=== PATIENT | male | born 1985 | race Caucasian/White ===

== ENCOUNTER 2017-10-25 16:44 | Observation (INO) ==
--- NOTE | 2017-10-25 17:01 | Emergency Department Note ---
Disposition Clinical Impression: Positive QuantiFERON-TB Gold test Disposition: Admitted As Inpatient Condition: Undetermined Forms: ED Satisfaction Letter Time of Disposition: 17:16 General Adult HPI - General Chief complaint: ED Recheck/Abnormal Lab/Rx Stated complaint: + TB Test Time Seen by Provider: 10/25/17 16:48 Source: patient Mode of arrival: ambulatory Limitations: no limitations Nursing Notes Reviewed: Yes Vital Signs Reviewed: Yes - History of Present Illness HPI Narrative: 32-year-old male with exposure to tuberculosis, arrives to the emergency department after having a negative PPD, and negative chest x-ray with a positive Quante [place] test. The patient was sent from [place] emergency department to [facility] ED for admission and testing. I spoke to Dr. Amin in infectious disease. He requested 3 acid-fast bacillus smear 3 for the sputum. They need to be 8 at least 8 hours apart with the first in the morning. The patient also had a repeat Quante [place]. The patient is under airborne precautions at this time. He remains asymptomatic. The patient will be admitted to the hospitalist at this time. - Related Data Home Medications Medication Instructions Recorded Confirmed Naltrexone HCl 50 mg DAILY 10/25/17 10/25/17 Allergies Allergy/AdvReac Type Severity Reaction Status Date / Time Sulfa (Sulfonamide AdvReac Rash Verified 10/25/17 10:26 Antibiotics) All systems ED: reviewed and negative except as stated. Constitutional: Denies: fever, chills, weakness ENT ED: Denies: dysphagia Cardiovascular: Denies: chest pain Respiratory: Denies: dyspnea Gastrointestinal: Denies: abdominal pain Genitourinary: Denies: urgency, dysuria Musculoskeletal: Denies: back pain Integumentary: Denies: rash Past Medical History - Past Medical History Attestation: Yes The following information was validated with the patient. Source: patient, old records reviewed Medical history: Reports: no medical history, other Surgical history: Reports: non-contributory Psychiatric history: Reports: no psych history - Social History Smoking Status: Current every day smoker Smokeless Tobacco Status: No Alcohol use: Reports: none Drug use: Reports: IV Drug Use Physical Exam - General Limitations: no limitations General appearance: alert, in no apparent distress - Head Head exam: atraumatic, normocephalic, normal inspection - Eye Eye exam: Present: normal appearance, PERRL, EOMI - ENT ENT exam: normal exam, normal oropharynx, mucous membranes moist - Neck Neck exam: Present: normal inspection, full ROM, trachea midline - Chest Chest inspection: Present: normal inspection, symmetric chest wall rise - Respiratory Respiratory exam: Present: normal lung sounds bilaterally - Cardiovascular Cardiovascular exam: Present: regular rate, normal rhythm, normal heart sounds - Extremities Exam Extremities exam: Present: normal inspection, full ROM. Absent: tenderness, pedal edema - Neurological Exam Neurological exam: Present: alert, oriented X3 - Skin Skin exam: Present: warm, dry, intact, normal color Course Vital Signs Temperature 98.0 F 10/25/17 16:54 Pulse Rate 87 10/25/17 16:54 Respiratory Rate 15 10/25/17 16:54 Blood Pressure 144/79 10/25/17 16:54 O2 Sat by Pulse Oximetry 98 10/25/17 16:54 Temperature 98.0 F 10/25/17 16:54 Pulse Rate 83 10/25/17 16:59 Respiratory Rate 15 10/25/17 16:54 Blood Pressure 124/79 10/25/17 16:59 O2 Sat by Pulse Oximetry 97 10/25/17 16:59 Oxygen Delivery Oxygen Delivery Room Air Medical Decision Making - MDM Narrative Medical decision making narrative: Accepted by Dr. Rodriguez. - Medical Records Medical records reviewed: Yes I reviewed the patient's medical records.
--- NOTE | 2017-10-25 17:24 | Emergency Department Note ---
Disposition Clinical Impression: Positive QuantiFERON-TB Gold test Disposition: Admitted As Inpatient Condition: Undetermined Referrals: Sujata Han, HIGH HEEL BUILDER [Primary Care Provider] - Forms: ED Satisfaction Letter General Adult HPI - General Chief complaint: ED Recheck/Abnormal Lab/Rx Stated complaint: + TB Test Time Seen by Provider: 10/25/17 16:48 Source: patient Mode of arrival: ambulatory Limitations: no limitations - History of Present Illness Pain Scale: 0 - Related Data Home Medications Medication Instructions Recorded Confirmed Naltrexone HCl 50 mg PO DAILY 10/25/17 10/25/17 Naltrexone Microspheres [Vivitrol] 380 mg IJ QMONTH 10/25/17 10/25/17 Omeprazole [PriLOSEC] 20 mg PO DAILY 10/25/17 10/25/17 Allergies Allergy/AdvReac Type Severity Reaction Status Date / Time Sulfa (Sulfonamide AdvReac Rash Verified 10/25/17 10:26 Antibiotics) Constitutional: Denies: fever, chills, weakness ENT ED: Denies: dysphagia Cardiovascular: Denies: chest pain Respiratory: Denies: dyspnea Gastrointestinal: Denies: abdominal pain Genitourinary: Denies: urgency, dysuria Musculoskeletal: Denies: back pain Integumentary: Denies: rash Past Medical History - Past Medical History Medical history: Reports: no medical history, other Surgical history: Reports: non-contributory Psychiatric history: Reports: no psych history - Social History Smoking Status: Current every day smoker Smokeless Tobacco Status: No Alcohol use: Reports: none Drug use: Reports: IV Drug Use Physical Exam - General Limitations: no limitations General appearance: alert, in no apparent distress Course Vital Signs Temperature 98.0 F 10/25/17 16:54 Pulse Rate 87 10/25/17 16:54 Respiratory Rate 15 10/25/17 16:54 Blood Pressure 144/79 10/25/17 16:54 O2 Sat by Pulse Oximetry 98 10/25/17 16:54 Temperature 98.0 F 10/25/17 16:54 Pulse Rate 83 10/25/17 16:59 Respiratory Rate 15 10/25/17 16:54 Blood Pressure 124/79 10/25/17 16:59 O2 Sat by Pulse Oximetry 97 10/25/17 16:59 Oxygen Delivery Oxygen Delivery Room Air Attestation Statement - Attestation Attestation: I examined this patient and my medical decision-making was reviewed with the Resident Physician. I agree with the documented findings, disposition and treatment plan as described except to the extent set forth below. Has a chronic cough, coughing more than usual but no hemoptysis. No weight loss. Has had some night time sweating. Has felt like he may have been febrile but has not checked his temperature. Patient is in a negative pressure room be admitted for further testing.
[2017-10-25] MEDS ORDERED: Naloxone 0.4 MG/ML INJ IVP PRN (20:12)
--- NOTE | 2017-10-25 23:44 | Internal Med History&Physical ---
Date of Encounter: 10/25/17 Time of Encounter: 19:00 Internal Medicine - H&P: HPI Chief complaint: Positive QuantiFERON-TB Gold. History of present illness: Mr. Castellon is a 32 year old male. HPI: Patient is sent to our emergency room from his drug rehab program, after he was tested positive for QuantiFERON TB Gold. The test was done about a week ago in preparation for treatment with Vivitrol. He started this opiate antagonist yesterday. The patient started to his drug rehab about 3 months ago; has 1 month left. It was about 6 weeks ago, when he started contacts with one of his inmates, who was later tested positive for tuberculosis. Those contacts lasted for about 12 weeks. The whole group was subjected to Lydia test recently. It was negative for for this patient. The patient has had coughing but not wheezing for about a few weeks. He denies fever and chills. He denies sweating. He does have some thick mucus; cannot bring it up. This patient started IV heroine injections some time last year. He was released from the assisted on July 30, 2016was incarcerated for about 4 years. He was tested hepatitis C positive, when in assisted. He does have the tatoos, originating a few years ago. He smokes cigarettes. He denies alcohol use. REVIEW OF SYSTEMS: All 14 organ systems were reviewed by me with the patient. Positive and pertinent negative findings are listed above. The rest of organ systems is negative. PHYSICAL EXAM: Skin: Free of rash and discoloration. Eyes: Sclera is white. There is no discharge from eyes. ENMT: Oral/pharyngeal mucosa is normal in appearance. There is no discharge from nose or ears. Respiratory: Normal breath sounds with no crackles and wheezes bilaterally. CV: Heart is regular with no gallop or murmur. GI: Abdomen is flat and soft with no palpable mass or visceromegaly. : There is no tenderness in patient's flanks bilaterally. Neuro exam: He has good strength in upper and lower extremities. He has normal eye movements. Psychiatric: He has normal affect. His thought process is appropriate to the situation. A/P: Exposure to person with active tuberculosis; the patient is negative in Lydia test and the positive in TB Gold QuantiFERON. The patient is presented to infectious diseases. They recommend the TB isolation. He will have for 3 AFB cultures from his sputum. TB Gold QuantiFERON will be repeated. IV heroine user. I will discuss with the pharmacy treatment with Vivitrol. To be restarted tomorrow. Past Med Surg Social Fam HX - Past Medical History Medical history: no medical history, other Additional medical history: RECOVERING FROM HEROIN USE Psychiatric history: no psych history - Past Surgical History Surgical History: non-contributory - Social History Smoking Status: Current every day smoker Smokeless Tobacco Status: No Alcohol use: none Drug use: IV Drug Use - Family History Mother History Unknown: Yes Internal Medicine - H&P: Meds Naltrexone HCl 50 mg PO DAILY 10/25/17 [History] Naltrexone Microspheres [Vivitrol] 380 mg IJ QMONTH 10/25/17 [History] Omeprazole [PriLOSEC] 20 mg PO DAILY 10/25/17 [History] 3 Allergy/AdvReac Type Severity Reaction Status Date / Time Sulfa (Sulfonamide AdvReac Rash Verified 10/25/17 10:26 Antibiotics) - Constitutional Vitals: Temp Pulse Resp BP Pulse Ox 98.3 F 63 14 119/78 97 10/25/17 21:18 10/25/17 21:18 10/25/17 21:18 10/25/17 21:18 10/25/17 21:18 General appearance: Present: A&O X 3, no acute distress, answers questions appropriately - VTE Reasons for not Prescribing Prophylaxis: Treatment not Indicated - Low risk for VTE - Assessment and plan (1) Positive QuantiFERON-TB Gold test Current Visit: Yes Status: Acute (2) Heroin addiction Current Visit: Yes Status: Chronic - Time Spent With Patient Total time spent is greater than 50% in coordination of care (as documented) at patient's floor/unit and/or counseling patient: Greater than 35 minutes (40 minutes)
[2017-10-26 01:59] LABS: Basophils # 0.1 K/mcL (0.0-0.2); Basophils % 0.6 %; Eosinophils # 0.4 K/mcL (0.0-0.6); Eosinophils % 3.7 %; Hematocrit 42.3 % (37.5-50.1); Hemoglobin 14.4 g/dL (12.9-16.9); Immature Granulocytes % 0.2 % (0-4); Lymphocytes # 3.2 K/mcL (0.6-4.6); Lymphocytes % 32.2 %; Mean Corpuscular Hemoglobin 30.3 pg (28.0-33.3); Mean Corpuscular Volume 89.1 fL (83.0-100.0); Monocytes # 0.8 K/mcL (0.0-1.3); Monocytes % 7.9 %; Neutrophils # 5.5 K/mcL (1.6-8.9); Platelet Count 216 K/mcL (140-400); Red Blood Count 4.75 M/mcL (4.19-5.50); Red Cell Distribution Width 13.2 % (11.5-14.5); Segmented Neutrophils % 55.4 %
[2017-10-26 02:17] LABS: BUN/Creatinine Ratio 18 (6-26); Blood Urea Nitrogen 18 mg/dL (6-20); Calcium 9.3 mg/dL (8.6-10.3); Carbon Dioxide 24 mEq/L (23-29); Chloride 107 mEq/L (98-107); Glucose 119 mg/dL (70-105); Magnesium 2.1 mg/dL (1.6-2.6); Osmolality,Calculated 289 (280-300); Potassium 3.8 mEq/L (3.5-5.1); Sodium 138 mEq/L (136-145); eGFR For Non-African Americans > 60 (> 60)
[2017-10-26 02:19] LABS: Albumin 4.2 g/dL (3.5-5.7); Albumin/Globulin Ratio 1.4 (1.1-2.2); Bilirubin,Indirect 0.3 mg/dL (0.0-1.2); Bilirubin,Total 0.3 mg/dL (0.3-1.0); Globulin 2.9 g/dL (2.4-3.5); Total Protein 7.1 g/dL (6.4-8.9)
[2017-10-26] MEDS: NALTREXONE HCL 50 MG TABLET PO SCH (09:48)
--- NOTE | 2017-10-26 13:53 | Infectious Disease Consult ---
Date of Encounter: 10/26/17 Time of Encounter: 13:52 Assessment and Plan (1) Positive QuantiFERON-TB Gold test Status: Acute Assessment and plan: Quantiferon positive 10/2017. Previous PPD and Quantiferons negative. Not sure if this is a false positive, or the patient is recently turned positive. He has been exposed to someone with active TB recently. CXR negative. Repeat Quantiferon pending. Get AFB smear x 3 total. One sent and is negative. Continue Airborne precautions until AFB smear negative x 3 or repeat Quantiferon negative. No antibiotics required at this time. We will continue to follow. (2) Heroin addiction Status: Chronic Assessment and plan: In remission. Last use 4 months ago. (3) Hepatitis C Status: Acute Assessment and plan: Known Hep C positive secondary to previous IVDU. Qualifiers: Viral hepatitis chronicity: chronic Hepatic coma status: without hepatic coma Qualified Code(s): B18.2 - Chronic viral hepatitis C Infectious Disease HPI - Data of Consult Patient: new to practice Consult date: 10/26/17 Requesting Physician: Billy Hall Primary Care Provider: Sujata Han CNP - Consult Narrative Reason for consult: Positive Quantiferon History of present illness: Mr. Castellon is a 32 year old male with a past medical history of treatment naive hepatitis C, remote history of IV drug use currently running at an inpatient drug rehabilitation facility. The patient was admitted to the hospital October 25 for positive QuantiFERON. We are consulted October 26 for further recommendations for positive on interferon. Briefly, the patient's a 32-year-old male with past medical history as stated above. The patient states that about 4 months ago he went into a local inpatient drug rehabilitation program. He states that one of the other residents there tested positive for active tuberculosis and had to start treatment. At that time, he had a negative PPD. States he went to his doctor and was due to start on Vivitrol injections and they checked a QuantiFERON and came back positive. He went to [facility] emergency department and had a chest x-ray that was negative. After discussion with the [facility], it was determined that he needed to be hospitalized to rule out active TB since he was in close contact with someone infected with TB so he was transferred here. Upon arrival, the patient was afebrile hemodynamically stable. His laboratory studies reveal a normal white blood cell count. His LFTs are mildly elevated. His serum creatinine is normal. He had a repeat Quantiferon drawn in the ER. AFB smear is negative x 1. He is not currently on any antibiotics. We have been asked to evaluate and make further recommendations. During my exam today, the patient endorses the history as stated above. He denies any known fevers, chills, or rigors, but states he has had a couple of people tell him he felt warm when they were hugging. He denies headache, neck pain, congestion, earache, or sore throat. He reports some chest congestion with a moist cough at times. He denies any night sweats, weight loss, hemoptysis , or appetite changes. Denies oral thrush or new skin lesions. Denies abdominal pain, urinary complaints, or N/V/D. He denies any back or joint pain. The patient currently resides at a local inpatient drug rehab center. He smokes about a pack of cigarettes per day. Denies alcohol use. States he used to use IV heroine, but has not used since starting drug rehab 4 months ago. He is known Hep C positive, but denies any other known infectious diseases. He reports that he was incarcerated in long term for three years and was released in July 2016. He reports previous PPD and Quantiferon tests were negative when he was in long term as well. CC: Billy Hall Past Med Surg Social Fam HX - Past Medical History Medical history: no medical history, hepatitis (Hep C), other Additional medical history: RECOVERING FROM HEROIN USE Psychiatric history: no psych history - Past Surgical History Surgical History: non-contributory - Social History Smoking Status: Current every day smoker Packs per day: 1 Smokeless Tobacco Status: No Alcohol use: none Drug use: IV Drug Use (Last use 4 months ago, IV heroine.) Occupational status: unemployed Current living situation: Other (Inpatient Drug Rehab) Activity Level: Independent ambulation Recent Out of Country Travel Within the Last 8 Weeks: No Exposure or Possible Exposure to Illness During Travel: No - Family History Mother History Unknown: Yes Infectious Disease-CN:Meds Naltrexone HCl 50 mg PO DAILY 10/25/17 [History] Naltrexone Microspheres [Vivitrol] 380 mg IJ QMONTH 10/25/17 [History] Omeprazole [PriLOSEC] 20 mg PO DAILY 10/25/17 [History] 3 Allergy/AdvReac Type Severity Reaction Status Date / Time Sulfa (Sulfonamide AdvReac Rash Verified 10/25/17 10:26 Antibiotics) All systems: reviewed and no additional remarkable complaints except as stated Exam - Constitutional Vitals: Temp Pulse Resp BP Pulse Ox 98.2 F 63 17 124/64 96 10/26/17 12:43 10/26/17 12:43 10/26/17 12:43 10/26/17 12:43 10/26/17 12:43 General appearance: average body habitus, cooperative, no acute distress - Head Head exam: Present: atraumatic, normal inspection, normocephalic - Eye Eye exam: Present: EOMI, normal appearance, PERRL Pupils: Present: normal accommodation Additional comments: Poor dentition noted. - ENT ENT exam: Present: mucous membranes moist - Neck Neck exam: Present: normal inspection - Respiratory Respiratory exam: Present: CTAB. Absent: rales, respiratory distress, rhonchi, wheezes - Cardiovascular Cardiovascular exam: Present: RRR, +S1, +S2 - GI/Abdominal GI/Abdominal exam: Present: normal bowel sounds, soft. Absent: distended, tenderness - Extremities Exam Extremities exam: Present: normal inspection. Absent: joint swelling, pedal edema, tenderness - Neurological Exam Neurological exam: Present: alert, oriented X3, no focal deficits - Psychiatric Psychiatric exam: Present: normal affect, normal mood - Skin Skin exam: Present: dry, intact, normal color, warm Infectious Disease CN: Results - Labs CBC & Chem 7: 10/26/17 01:47 10/26/17 01:47 Cultures: Cultures 10/26/17 05:45 Acid Fast Stain - Final Sputum - VTE Reasons for not Prescribing Prophylaxis: Treatment not Indicated - Low risk for VTE Consult Discharge Plan - Plan Referrals: Sujata Han, LOCAL TELEPHONE OPERATOR [Primary Care Provider] - - Attending Attestation I examined this patient and my medical decision-making was reviewed with the Resident Physician. I agree with the documented findings, disposition and treatment plan as described except to the extent set forth below. This is an addendum to original report dictated by Marija Salomon CNP please refer to her note for full details. Patient is a 32-year-old gentleman with history of IV drug use, hepatitis C and recent incarceration was staying in a rehabilitation place and apparently a patient was admitted and possibly had active TB. Exact details are really not known. Of for so many different stories from so many different people including the patient himself. That happened about a month ago and the patient had a PPD test which came back negative. Patient was asymptomatic but they checked QuantiFERON anyways and it came back positive. Patient was transferred to [facility] where they called me from the ED and I recommended patient comes here to rule out active TB because a lot of information was missing. Currently patient is asymptomatic. Comfortable. Denies any fevers or chills. No night sweats. No cachexia. No chest pain or shortness of breath. No pleuritic chest pain. No cough or hemoptysis. Assessment and plan: Exposure to patient with possible active TB. We will call the rehabilitation place and see if we can get some information. In the meantime we will repeat QuantiFERON to make sure is not a false positive. We will get 3 AFB smears first one in the a.m. and then 2 at 8 hours apart Repeat chest x-ray Was 3 AFB smears are negative and QuantiFERON comes back positive then we will decide whether this is false positive test versus latent TB versus active TB versus other. At that time we will make further recommendations for the patient. Patient had his family with him so I answered their questions and addressed their concerns.
[2017-10-27] MEDS: NALTREXONE HCL 50 MG TABLET PO SCH (08:48)
--- NOTE | 2017-10-27 10:50 | Infectious Disease Progress No ---
Date of Encounter: 10/27/17 Time of Encounter: 10:48 - Assessment and Plan (1) Positive QuantiFERON-TB Gold test Current Visit: Yes Status: Acute Quantiferon positive 10/2017. Previous PPD and Quantiferons negative. Not sure if this is a false positive, or the patient is recently turned positive. He has been exposed to someone with active TB recently. CXR negative. Repeat Quantiferon pending. Get AFB smear x 3 total. One sent and is negative. Two are pending. Continue Airborne precautions until AFB smear negative x 3 or repeat Quantiferon negative. No antibiotics required at this time. We will continue to follow. (2) Heroin addiction Current Visit: Yes Status: Chronic In remission. Last use 4 months ago. (3) Hepatitis C Current Visit: Yes Status: Acute Known Hep C positive secondary to previous IVDU. Qualifiers: Viral hepatitis chronicity: chronic Hepatic coma status: without hepatic coma Qualified Code(s): B18.2 - Chronic viral hepatitis C - Subjective Interval history: Patient seen and examined. No acute events noted overnight. Patient states cough persists, productive of clear sputum. Denies fevers, chills, or rigors. Denies night sweats or weight loss. Denies chest pain or shortness of breath. Denies nausea, vomiting, or diarrhea. Denies abdominal pain, urinary complaints , or appetite changes. Denies oral thrush or skin lesions. Infect Dis PN-Objective Data - Labs CBC & Chem 7: 10/26/17 01:47 10/26/17 01:47 Cultures: Cultures 10/26/17 05:45 Acid Fast Stain - Final Sputum Exam - Constitutional Vitals: Temp Pulse Resp BP Pulse Ox 97.8 F 61 16 129/61 97 10/27/17 08:23 10/27/17 08:23 10/27/17 08:23 10/27/17 08:23 10/27/17 08:23 General appearance: average body habitus, cooperative, no acute distress - Head Head exam: Present: atraumatic, normal inspection, normocephalic - Eye Eye exam: Present: EOMI, normal appearance, PERRL Pupils: Present: normal accommodation - ENT ENT exam: Present: mucous membranes moist - Neck Neck exam: Present: normal inspection - Respiratory Respiratory exam: Present: CTAB. Absent: rales, respiratory distress, rhonchi, wheezes - Cardiovascular Cardiovascular exam: Present: RRR, +S1, +S2 - GI/Abdominal GI/Abdominal exam: Present: normal bowel sounds, soft. Absent: distended, tenderness - Extremities Exam Extremities exam: Present: normal inspection. Absent: joint swelling, pedal edema, tenderness - Back Exam Back exam: Present: normal inspection. Absent: paraspinal tenderness, vertebral tenderness - Neurological Exam Neurological exam: Present: alert, oriented X3, no focal deficits - Psychiatric Psychiatric exam: Present: normal affect, normal mood - Skin Skin exam: Present: dry, intact, normal color, warm - VTE Reasons for not Prescribing Prophylaxis: Treatment not Indicated - Low risk for VTE Consult Discharge Plan - Plan Referrals: Sujata Han, STATISTICAL DEVELOPER [Primary Care Provider] - - Attending Attestation I examined this patient and my medical decision-making was reviewed with Marija Salomon CNP. I agree with the documented findings, disposition and treatment plan as described except to the extent set forth below.
[2017-10-27 15:55] VITALS: BP 125/67
--- NOTE | 2017-10-27 17:27 | Discharge Summary ---
Orders not resulted at time of discharge: Pending orders 10/26/17 05:45 AFB Culture, Respiratory [TB] Routine 10/26/17 17:10 AFB Culture, Respiratory [TB] Routine 10/27/17 04:20 AFB Culture, Respiratory [TB] Routine Date of Encounter: 10/27/17 Time of Encounter: 17:27 - Discharge Diagnosis (1) Positive QuantiFERON-TB Gold test Priority: Primary Status: Acute (2) Heroin addiction Priority: Secondary Status: Chronic Hospital course: Mr. Castellon is a 32 year old male. We got this patient from drug addiction program. When getting initial evaluation before treatment with Vivitrol, he was found positive for goal to TB QuantiFERON test. He had exposure to a patient with active tuberculosis recently. His Lydia test was negative. The patient has recently developed some coughing. Otherwise he does not have any other symptoms. Chest x-ray showed normal findings. We presented him to infectious disease service. We obtained 3 AFB respiratory cultures. They are negative. We repeated golds TB QuantiFERON test. The results are pending. As per ID service the patient can be discharged home today. Follow up with them in about 2 weeks. CONDITION AT DISCHARGE: He feels good. He has mild cough. Otherwise, he has no other symptoms. Skin: Free of rash and discoloration. Respiratory: Normal breath sounds with no crackles and wheezes bilaterally. GI: Abdomen is flat and soft with no palpable mass or visceromegaly. Neuro exam: There is no focal deficits. Normal speech, swallowing and gait. SEE DISCHARGE ORDERS/MEDICATIONS.. Discharge discussed with: patient - Time Spent with Patient Total time spent providing and/or coordinating discharge services: Greater than 30 minutes (40 minutes) - Discharge Medications Home Medications: Naltrexone HCl 50 mg PO DAILY 10/25/17 [History] Omeprazole [PriLOSEC] 20 mg PO DAILY 10/25/17 [History] Allergies/Adverse Reactions: 3 Allergy/AdvReac Type Severity Reaction Status Date / Time Sulfa (Sulfonamide AdvReac Rash Verified 10/25/17 10:26 Antibiotics) Date of admission: 10/25/17 20:04 Primary care physician: Sujata Han CNP Consults: 10/26/17 08:55 Consult to Java Oracle Developer [CONS] Routine Reason for SW Consult: RETURN TO INPATIENT TREATMENT FACILITY Discharging clinician: Billy Hall Anticipated date of discharge: 10/27/17 - Constitutional Vitals: Temp Pulse Resp BP Pulse Ox 98.2 F 58 16 125/67 97 10/27/17 15:54 10/27/17 15:54 10/27/17 15:54 10/27/17 15:54 10/27/17 15:54 General appearance: Present: A&O X 3, no acute distress, answers questions appropriately - Patient Status Disposition: Home, Self-Care Condition: Undetermined - Discharge Instructions Follow Up With: Sujata Han CNP [Primary Care Provider] - Christian Omer MD [Partnered Physician] - (the office will call you with appointment) Additional Instructions: THE PATIENT IS RE-JOINING HIS DRUG REHAB PROGRAM (TODAY). FOLLOW-UP WITH INFECTIOUS DISEASES IN 1 WEEK. - Diet and Activity Activity: resume usual activities as tolerated Diet: regular diet - VTE Reasons for not Prescribing Prophylaxis: Treatment not Indicated - Low risk for VTE
--- NOTE | 2017-10-29 05:39 | Internal Med Progress Note ---
Hospitalist Progress Note - Encounter Date of Encounter: 10/26/17 Time of Encounter: 19:00 - Exam Vitals: Temp Pulse Resp BP Pulse Ox 98.2 F 58 16 125/67 97 10/27/17 15:54 10/27/17 15:54 10/27/17 15:54 10/27/17 15:54 10/27/17 15:54 Exam: xxx - Assessment and Plan (1) Positive QuantiFERON-TB Gold test Status: Acute (2) Heroin addiction Status: Chronic DVT Prophylaxis: low risk - Summary of Assessment and Plan Summary of Assessment and Plan: SUBJECTIVE: The patient feels good. He does have mild cough but not wheezing. He did not have any sweating last night. Denies chest pain. Denies abdominal pain, nausea and vomiting. He has normal urination. He is in TB isolation room. OBJECTIVE: Skin: Free of rash and discoloration. ENMT: Oral/pharyngeal mucosa is normal in appearance. Eyes: Sclera is white. There is no discharge from eyes. Respiratory: Normal breath sounds; no crackles or wheezes. CV: Heart is regular; no gallop or murmur. GI: Abdomen is soft and not tender. There is no palpable mass or visceromegaly. Neuro: There is no focal deficits. ASSESSMENT AND PLAN: Positive TB Gold QuantiFERON. Exposure to a person with active tuberculosis. His first AFB respiratory culture is negative. The results for the other 2 tests are pending. TB Gold QuantiFERON test has been repeated. The results are pending. IV heroin user. We will continue his Vivitrol treatment. - Time Spent with Patient Total time spent is greater than 50% in coordination of care (as documented) at patient's floor/unit and/or counseling patient: 25 - 35 minutes Plan of Care Discussed with: patient Internal Medicine: Result - Labs CBC & Chem 7: 10/26/17 01:47 10/26/17 01:47 - VTE Reasons for not Prescribing Prophylaxis: Treatment not Indicated - Low risk for VTE Consult Discharge Plan - Plan Additional Instructions: THE PATIENT IS RE-JOINING HIS DRUG REHAB PROGRAM (TODAY). FOLLOW-UP WITH INFECTIOUS DISEASES IN 1 WEEK. Referrals: Sujata Han CNP [Primary Care Provider] - Christian Omer MD [Partnered Physician] - (the office will call you with appointment)
[2017-10-30 13:27] LABS: QuantiFERON NIL 0.09 IU/mL; QuantiFERON-TB Gold In-Tube NEGATIVE (Negative)
== END 2017-10-27 18:45 | disposition home or self-care (01) ==
LOC: 3BNU 16:44 → EMEROOARM 16:44 → SUATTDRO 20:04 → 3BNU 20:35
PROVIDERS: ADMIT Internal Medicine; ATTEND Internal Medicine

== ENCOUNTER 2018-04-03 15:50 | Inpatient (IN) ==
[2018-04-03] MEDS ORDERED: Clindamycin 900 MG/50 ML 900 MG/50 ML IV.SOLN IVPB ONE (16:52)
[2018-04-03] MEDS ORDERED: Ibuprofen 800 MG TABLET PO ONE (16:55)
--- NOTE | 2018-04-03 16:55 | Emergency Department Note ---
Disposition Clinical Impression: Facial abscess Cellulitis Qualifiers: Site of cellulitis: face Qualified Code(s): L03.211 - Cellulitis of face Disposition: Admitted As Inpatient Condition: Fair Time of Disposition: 18:31 General Adult HPI - General Chief complaint: ED Skin/Abscess/Foreign Body Stated complaint: Facial Abscess Time Seen by Provider: 04/03/18 16:04 Source: patient Limitations: no limitations - History of Present Illness Pain Scale: 10 - Related Data Previous Rx's Medication Instructions Recorded Bacitracin 3.5 gm OP BID #1 oint...g. 04/02/18 Clindamycin HCl 450 mg PO TID 7 Days #21 capsule 04/02/18 Allergies Allergy/AdvReac Type Severity Reaction Status Date / Time Sulfa (Sulfonamide AdvReac Rash Verified 04/03/18 16:06 Antibiotics) Past Medical History - Past Medical History Medical history: Reports: no medical history Surgical history: Reports: non-contributory Psychiatric history: Reports: no psych history - Social History Smoking Status: Current every day smoker Smokeless Tobacco Status: No Alcohol use: Reports: none Drug use: Reports: IV Drug Use Physical Exam - General Limitations: no limitations Course Vital Signs Temperature 97.5 F L 04/03/18 16:06 Pulse Rate 81 04/03/18 16:06 Respiratory Rate 18 04/03/18 16:06 Blood Pressure 123/86 04/03/18 16:06 O2 Sat by Pulse Oximetry 96 04/03/18 16:06 Temperature 97.5 F L 04/03/18 16:12 Pulse Rate 87 04/03/18 18:24 Respiratory Rate 16 04/03/18 18:24 Blood Pressure 129/82 04/03/18 18:24 O2 Sat by Pulse Oximetry 100 04/03/18 18:24 Oxygen Delivery Oxygen Delivery Room Air Medical Decision Making - Lab Data Result diagrams: 04/03/18 16:52 04/03/18 16:52 Lab Results 04/03/18 04/03/18 04/03/18 Range/Units 16:52 16:52 17:08 WBC 16.2 H (4.3-11.1) K/mcL RBC 4.50 (4.19-5.50) M/mcL Hgb 13.4 (12.9-16.9) g/dL Hct 39.9 (37.5-50.1) % MCV 88.7 (83.0-100.0) fL MCH 29.8 (28.0-33.3) pg MCHC 33.6 (31.6-35.5) g/dL RDW 13.0 (11.5-14.5) % Plt Count 240 (140-400) K/mcL MPV 8.8 L (9.4-12.4) fL Immature Gran % 0.4 (0-4) % Seg Neutrophils % 78.6 % Lymphocytes % 12.8 % Monocytes % 5.9 % Eosinophils % 1.9 % Basophils % 0.4 % Neutrophils # 12.7 H (1.6-8.9) K/mcL Lymphocytes # 2.1 (0.6-4.6) K/mcL Monocytes # 1.0 (0.0-1.3) K/mcL Eosinophils # 0.3 (0.0-0.6) K/mcL Basophils # 0.1 (0.0-0.2) K/mcL Sodium 136 (136-145) mEq/L Potassium 4.1 (3.5-5.1) mEq/L Chloride 100 (98-107) mEq/L Carbon Dioxide 31 H (23-29) mEq/L BUN 10 (6-20) mg/dL Creatinine 0.84 (0.70-1.30) mg/dL Est GFR ( Amer) > 60 (> 60) Est GFR (Non-Af Amer) > 60 (> 60) BUN/Creatinine Ratio 12 (6-26) Glucose 96 (70-105) mg/dL Calculated Osmolality 281 (280-300) Lactic Acid 0.5 (0.5-2.2) mmol/L Calcium 9.4 (8.6-10.3) mg/dL Attestation Statement - Attestation Attestation: I examined this patient and my medical decision-making was reviewed with the Resident Physician. I agree with the documented findings, disposition and treatment plan as described except to the extent set forth below. Patient to the ED with a facial abscess. Seen yesterday and set up with oral surgery follow-up today. They sent him back here for ENT consult. Patient states it is significantly more swollen. He received IV clindamycin here ye sterday. He has not yet filled his prescription. On exam he has a moderate amount of swelling of the left mandible. Plan. CT reviewed from yesterday with 2 abscesses. We will begin IV antibiotic. Consult with ENT. Patient will be admitted. White blood cell count is 16,000. Vital signs stable and he is afebrile. Calling for admission.
--- NOTE | 2018-04-03 16:55 | Emergency Department Note ---
Disposition Clinical Impression: Facial abscess Cellulitis Qualifiers: Site of cellulitis: face Qualified Code(s): L03.211 - Cellulitis of face Disposition: Admitted As Inpatient Condition: Fair Time of Disposition: 17:52 General Adult HPI - General Chief complaint: ED Skin/Abscess/Foreign Body Stated complaint: Facial Abscess Time Seen by Provider: 04/03/18 16:04 Source: patient Mode of arrival: ambulatory Limitations: no limitations Nursing Notes Reviewed: Yes Vital Signs Reviewed: Yes - History of Present Illness HPI Narrative: Patient is a 33-year-old male presenting with left-sided facial swelling. Patient has history of IV drug use no history of MRSA. Patient states that yesterday he woke up and noticed a small swelling on the left side of his chin. He was seen in the ER, at that point in time he was given 1 dose of IV clindamycin, as well as follow-up information for Dr. Abreu, notes that he did go to this office appointment today, however was told that this was not his field and needed to return to the ER for further evaluation. On arrival, patient states that the swelling has significant only increased now going into the left side of his jaw with some purulent drainage out of the open lesion at the left point of his chin. He states that this point in time he has had some subjective fevers and chills. He denies any history of abscess in this location. Denies any recent dental work or concerns. He states at this point in time he states feeling as though he has a little bit of a sore throat, no difficulty breathing or swallowing. Pain Scale: 10 - Related Data Previous Rx's Medication Instructions Recorded Bacitracin 3.5 gm OP BID #1 oint...g. 04/02/18 Clindamycin HCl 450 mg PO TID 7 Days #21 capsule 04/02/18 Allergies Allergy/AdvReac Type Severity Reaction Status Date / Time Sulfa (Sulfonamide AdvReac Rash Verified 04/03/18 16:06 Antibiotics) All systems ED: reviewed and negative except as stated. Review of Systems: As Per HPI Constitutional: Reports: fever, chills ENT ED: Reports: throat pain, other (Left-sided facial swelling and pain). Denies: dental pain, congestion, dysphagia Cardiovascular: Reports: as per HPI Respiratory: Denies: cough, dyspnea, wheezes, hemoptysis, stridor Gastrointestinal: Denies: abdominal pain, nausea, vomiting, diarrhea, constipat ion, hematemesis, melena, hematochezia Genitourinary: Denies: urgency, dysuria, frequency, hematuria Musculoskeletal: Denies: back pain, neck pain, arthralgia, myalgia Integumentary: Denies: rash Neurological: Denies: headache, weakness, confusion Endocrine: Denies: fatigue Past Medical History - Past Medical History Attestation: Yes The following information was validated with the patient. Source: patient Medical history: Reports: no medical history Surgical history: Reports: non-contributory Psychiatric history: Reports: no psych history - Social History Smoking Status: Current every day smoker Smokeless Tobacco Status: No Alcohol use: Reports: none Drug use: Reports: IV Drug Use Physical Exam - General Limitations: no limitations General appearance: alert, in no apparent distress - Head Head exam: other (Patient with 1 cm x 1 cm open wound to the left lower chin, with surrounding induration 3 cm superior around the mandibular line and jaw. No fluctuance is noted, this is warm and erythematous, the open wound is actually draining purulent material.) - Eye Eye exam: Present: normal appearance, PERRL, EOMI - ENT ENT exam: normal exam, normal oropharynx, mucous membranes moist - Neck Neck exam: Present: normal inspection, full ROM, trachea midline, lymphadenopathy - Chest Chest inspection: Present: normal inspection, symmetric chest wall rise - Respiratory Respiratory exam: Present: normal lung sounds bilaterally - Cardiovascular Cardiovascular exam: Present: regular rate, normal rhythm, normal heart sounds - Abdominal Exam Abdominal exam: Present: soft, Non-Tender. Absent: tenderness, distention, guarding, rebound, rigidity Course Vital Signs Temperature 97.5 F L 04/03/18 16:06 Pulse Rate 81 04/03/18 16:06 Respiratory Rate 18 04/03/18 16:06 Blood Pressure 123/86 04/03/18 16:06 O2 Sat by Pulse Oximetry 96 04/03/18 16:06 Temperature 97.5 F L 04/03/18 16:12 Pulse Rate 81 04/03/18 17:35 Respiratory Rate 18 04/03/18 16:12 Blood Pressure 123/81 04/03/18 17:35 O2 Sat by Pulse Oximetry 100 04/03/18 17:35 Oxygen Delivery Oxygen Delivery Room Air Medical Decision Making - MDM Narrative Medical decision making narrative: Patient is a 33-year-old male presenting with left-sided facial abscess and swelling. Patient with history of IV drug use. Patient developed left-sided facial swelling yesterday, was seen in the ER and discharged with referral to oral surgeon, Dr. Peacock. Patient was seen by Dr. Peacock today, however was sent to the ER for further evaluation by ENT. Yesterday patient did receive 1 dose of IV clindamycin, has not been unable to fill this, patient was given IV clindamycin as well as vancomycin while here in the ER today. Patient is afebrile on arrival, in no acute distress, does have a small open wound that is purulent drainage, with induration surrounding this area, bedside ultrasound did reveal abscess to this location extending throughout the left mandible. CT that was performed yesterday does show 2 abscesses located the submental as well as the submandibular region. I did speak with Dr. Leong, ENT, he states that he will see the patient inpatient for assessment and further evaluation and recommendations, will perform I and D if appropriate. CBC with leukocytosis, BMP were ordered and are all within normal limits. Blood cultures were ordered, lactic acid is within normal limits. At this point in time, we will admit the patient for further definitive management. Patient is stable at time of disposition. - Medical Records Medical records reviewed: Yes I reviewed the patient's medical records. - Lab Data Result diagrams: 04/03/18 16:52 04/03/18 16:52 Lab Results 04/03/18 04/03/18 04/03/18 Range/Units 16:52 16:52 17:08 WBC 16.2 H (4.3-11.1) K/mcL RBC 4.50 (4.19-5.50) M/mcL Hgb 13.4 (12.9-16.9) g/dL Hct 39.9 (37.5-50.1) % MCV 88.7 (83.0-100.0) fL MCH 29.8 (28.0-33.3) pg MCHC 33.6 (31.6-35.5) g/dL RDW 13.0 (11.5-14.5) % Plt Count 240 (140-400) K/mcL MPV 8.8 L (9.4-12.4) fL Immature Gran % 0.4 (0-4) % Seg Neutrophils % 78.6 % Lymphocytes % 12.8 % Monocytes % 5.9 % Eosinophils % 1.9 % Basophils % 0.4 % Neutrophils # 12.7 H (1.6-8.9) K/mcL Lymphocytes # 2.1 (0.6-4.6) K/mcL Monocytes # 1.0 (0.0-1.3) K/mcL Eosinophils # 0.3 (0.0-0.6) K/mcL Basophils # 0.1 (0.0-0.2) K/mcL Sodium 136 (136-145) mEq/L Potassium 4.1 (3.5-5.1) mEq/L Chloride 100 (98-107) mEq/L Carbon Dioxide 31 H (23-29) mEq/L BUN 10 (6-20) mg/dL Creatinine 0.84 (0.70-1.30) mg/dL Est GFR ( Amer) > 60 (> 60) Est GFR (Non-Af Amer) > 60 (> 60) BUN/Creatinine Ratio 12 (6-26) Glucose 96 (70-105) mg/dL Calculated Osmolality 281 (280-300) Lactic Acid 0.5 (0.5-2.2) mmol/L Calcium 9.4 (8.6-10.3) mg/dL - Radiology Data Radiology results reviewed: Yes I reviewed the patient's radiology results. EXAMINATION: CT OF THE FACE WITH CONTRAST 04/02/2018 TECHNIQUE: CT of the face was performed with the administration of intravenous contrast. Multiplanar reformatted images are provided for review. Dose modulation, iterative reconstruction, and/or weight based adjustment of the mA/kV was utilized to reduce the radiation dose to as low as reasonably achievable. COMPARISON: None. HISTORY: ORDERING SYSTEM PROVIDED HISTORY: face abscess 75 ml of iso 370 FINDINGS: PHARYNX/LARYNX: Imaged portions of the aerodigestive tract without discrete enhancing mucosal lesion. The epiglottis is thin. The airway is patent. SALIVARY GLANDS: The parotid and submandibular glands appear unremarkable. LYMPH NODES: Reactive left greater than right cervical lymph nodes are present. SOFT TISSUES: Left facial soft tissue swelling extending into the submental region, outside the field of view. Round, hypodense subcutaneous collection along the left paramedian submental region measures 1.4 x 1.2 x 1.6 cm. Hypodense collection measuring 3 x 0.7 x 2.3 cm along the left mandibular body outer margin with heterogeneous wall noted. Portions of the face, oral cavity and oropharynx are obscured by dental amalgam streak artifact. BRAIN/ORBITS/SINUSES: The bilateral ostiomeatal units are occluded with mild polypoid soft tissue densities within the maxillary sinuses. Scattered ethmoid and left frontal sinus mucosal thickening. The sphenoid sinus is clear. BONES: No acute osseous abnormality is seen. CT/CT facial bones w con IMPRESSION: Extensive left facial soft tissue swelling suggestive of cellulitis, with two hypodense subcutaneous collections. The first within the left submental region measures 1.6 x 1.4 x 1.2 cm, and the second collection abuts the left mandibular body and measures 3.0 x 0.7 x 2.3 cm, suggestive of developing abscesses. Exam limited due to partial obscuration by dental amalgam artifact. Occluded bilateral ostiomeatal units with scattered polypoid paranasal sinus soft tissue densities, likely polyposis or mucous retention cysts. D/ / 04/03/2018 07:06:46 Stephen Felton / moira Interpreting Provider: Stephen Barraza - Madi Situation: Demographics, MOA Background: Presenting Complaint, Relevant PMH, Meds, & Allergies Assessment: Vital Signs, Course and respsone to treatment, Exam Concerns, Patient/Family Expectation, Pertinant Lab Results, Outstanding Labs Recommendation: Barrier(s) to disposition, Recommendation based on pending studies, treatments, or consults S.[email or web address] Report Given to: Dr. Betina Barraza Repor Time: 17:52 (accepted)
[2018-04-03 17:26] LABS: Basophils # 0.1 K/mcL (0.0-0.2); Basophils % 0.4 %; Eosinophils # 0.3 K/mcL (0.0-0.6); Eosinophils % 1.9 %; Hematocrit 39.9 % (37.5-50.1); Hemoglobin 13.4 g/dL (12.9-16.9); Immature Granulocytes % 0.4 % (0-4); Lymphocytes # 2.1 K/mcL (0.6-4.6); Lymphocytes % 12.8 %; Mean Corpuscular HGB Conc 33.6 g/dL (31.6-35.5); Mean Corpuscular Hemoglobin 29.8 pg (28.0-33.3); Mean Corpuscular Volume 88.7 fL (83.0-100.0); Mean Platelet Volume 8.8 fL (9.4-12.4); Monocytes % 5.9 %; Neutrophils # 12.7 K/mcL (1.6-8.9); Platelet Count 240 K/mcL (140-400); Segmented Neutrophils % 78.6 %
[2018-04-03 17:43] LABS: BUN/Creatinine Ratio 12 (6-26); Blood Urea Nitrogen 10 mg/dL (6-20); Calcium 9.4 mg/dL (8.6-10.3); Carbon Dioxide 31 mEq/L (23-29); Chloride 100 mEq/L (98-107); Glucose 96 mg/dL (70-105); Osmolality,Calculated 281 (280-300); Potassium 4.1 mEq/L (3.5-5.1); Sodium 136 mEq/L (136-145); eGFR For Non-African Americans > 60 (> 60)
[2018-04-03] MEDS ORDERED: Ketorolac 30 MG/ML VIAL IVP ONE (18:26)
[2018-04-03] MEDS ORDERED: Naloxone 0.4 MG/ML INJ IVP PRN (18:30)
--- NOTE | 2018-04-03 18:37 | Internal Med History&Physical ---
Date of Encounter: 04/03/18 Time of Encounter: 18:40 Internal Medicine - H&P: HPI Chief complaint: facial swelling and pain Admitted From: Home Plans for Post Hospital Care: Home History of present illness: Mr. Castellon is a 33 year old male with no significant past medical history who came in with left-sided facial swelling. Patient was seen yesterday in ER after he woke up after he noticed left-sided swelling of his face and redness of his chin. He was given IV clindamycin as well as prescribed Bactrim and clindamycin and had appointment set up with surgery. Sent him back today to ER for ENT consult. Patient's swelling is significantly improved meanwhile. He did not gets time to get his prescription filled. He has some subjective fevers chills. Denies any previous abscesses. Denies any previous blood infection or MRSA infection. Denies any recent dental work, injuries. Thinks she might have had a bug bite. Denies any difficulties breathing or swallowing. Patient was seen in the ER today and had lab work which showed a white count of 16 came down from 20 yesterday. Patient had a facial CT done yesterday before discharge which showed soft tissue swelling and to collection 1 with a left submental region and second near mandibular body suggestive of abscesses. Patient received clindamycin and vancomycin in the ER. On interview above mentioned history was confirmed. Patient again pain on his left side of his face and requests pain medication. Denies any difficulty breathing or swallowin g. He has history of IV drug use but has not used since about 2 months. He uses " Ice". He is in a program to quit IV drug use. Past Med Surg Social Fam HX - Past Medical History Medical history: no medical history Additional medical history: RECOVERING FROM HEROIN USE Psychiatric history: no psych history - Past Surgical History Surgical History: non-contributory - Social History Smoking Status: Current every day smoker Smokeless Tobacco Status: No Alcohol use: none Drug use: IV Drug Use - Family History Mother Hx Family Cardiac Disorders: No Internal Medicine - H&P: Meds Bacitracin 3.5 gm OP BID #1 oint...g. 04/02/18 [Rx] Clindamycin HCl 450 mg PO TID 7 Days #21 capsule 04/02/18 [Rx] Allergy/AdvReac Type Severity Reaction Status Date / Time Sulfa (Sulfonamide AdvReac Rash Verified 04/03/18 16:06 Antibiotics) All Systems PM: A 10-system review of systems was performed and is negative for pertinent findings except as documented above in the HPI. - Constitutional Vitals: Temp Pulse Resp BP Pulse Ox 97.5 F L 87 16 129/82 100 04/03/18 16:12 04/03/18 18:24 04/03/18 18:24 04/03/18 18:24 04/03/18 18:24 Exam: Constitutional: Vitals as noted. Conversant. Eyes : Sclera white, conjunctiva clear, no lid lag, PEARLA. ENT : Gross Left chin swelling and redness on jaw line near mentum. Has 4x5 induration redness extending to left side of neck. Left sided painful lymphadenopathy Respiratory : Clear to auscultation bilaterally. No accessory muscle use, rales, rhonchi or wheezes Cardiovascular : RRR, +S1, +S2. no murmur, gallop, rubs. No chest wall tenderness GI/Abdominal : Soft, Non-tender, Non-distended, normal bowel sounds, soft, no peritoneal signs. Musculoskeletal: no deformity noted. no edema or cyanosis. warm extremities, pulses palpable and symmetrical in UE/LE. no calf tenderness. Neurological: AO X3, CN II-XII grossly intact, grossly normal motor and sensory exam. Internal Med - H&P Results - Labs CBC & Chem 7: 04/03/18 16:52 04/03/18 16:52 Labs: Short CBC 04/03/18 Range/Units 16:52 WBC 16.2 H (4.3-11.1) K/mcL Hgb 13.4 (12.9-16.9) g/dL Hct 39.9 (37.5-50.1) % Plt Count 240 (140-400) K/mcL Neutrophils # 12.7 H (1.6-8.9) K/mcL BMP 04/03/18 16:52 Sodium 136 Potassium 4.1 Chloride 100 Carbon Dioxide 31 H BUN 10 Creatinine 0.84 Glucose 96 Calcium 9.4 - Assessment and plan (1) Facial abscess Current Visit: Yes Status: Acute Assessment and plan: - Patient increasing swelling on the left side of his face which was previously diagnosed on CT to have developing abscesses - Continue patient on vancomycin. Add Unasyn for anaerobic coverage - Toradol for pain control. We will try to avoid narcotics given history of addictive behavior - f/u blood culture - Patient would be seen by ENT for possible I&D (2) IVDU (intravenous drug user) Current Visit: Yes Status: Acute Assessment and plan: - Counseled on cessation - Already on a program (3) Cellulitis Current Visit: Yes Status: Acute Assessment and plan: - treatment as above. Qualifiers: Site of cellulitis: face Qualified Code(s): L03.211 - Cellulitis of face - Time Spent With Patient Total time spent is greater than 50% in coordination of care (as documented) at patient's floor/unit and/or counseling patient:
[2018-04-03] MEDS ORDERED: 0.9 % Sodium Chloride 500 ML IVC ONE (18:41)
[2018-04-03] MEDS ORDERED: Lidocaine/EPI 1:100k 1% 20 ML VIAL INFILT STA (19:46)
--- NOTE | 2018-04-03 20:14 | ENT - Consult Note ---
Date of Encounter: 04/03/18 Time of Encounter: 19:52 Assessment and Plan (1) Facial abscess Current Visit: Yes Status: Acute 33-year-old with left facial abscess for IND consent obtained and patient was numbed with about 2 mL of 1% lidocaine with 1 1000 epinephrine followed by incision through the area that was already draining enlarging of this opening and putting about 1-2 inches packing into the wound followed by application of heat a dressing was applied patient felt some relief at the drainage but it would probably take quite some time for of this area to fully drain recommending ENT follow-up tomorrow with possible removal of packing and possible repeat packing depending on drainage History of Present Illness Consult date: 04/03/18 Reason for ENT Consult: other (Facial abscess) History of present illness: White male 33 history of onset yesterday of sore in the left sub- mental and mandibular region CT yesterday revealed an abscess cavity in the submental region and an abscess cavity or formation forming along the lateral margin of the mandible the patient has no obvious dental issues denies any needles into the submental or's mandibular region has been spontaneously draining we obtained a culture from the spontaneously draining wound and then attempted to increase drainage by performing a localized incision and drainage of this area there was an area in the left where it was spontaneously draining with the patient had pulled some hairs because he thought he might of had ingrown hairs causing the infection Past Med Surg Social Fam HX - Past Medical History Medical history: no medical history Additional medical history: RECOVERING FROM HEROIN USE Psychiatric history: no psych history - Past Surgical History Surgical History: non-contributory - Social History Smoking Status: Current every day smoker Smokeless Tobacco Status: No Alcohol use: none Drug use: IV Drug Use - Family History Mother Hx Family Cardiac Disorders: No Medications and Allergies Bacitracin 3.5 gm OP BID #1 oint...g. 04/02/18 [Rx] Clindamycin HCl 450 mg PO TID 7 Days #21 capsule 04/02/18 [Rx] Allergy/AdvReac Type Severity Reaction Status Date / Time Sulfa (Sulfonamide AdvReac Rash Verified 04/03/18 16:06 Antibiotics) ENT Exam Initial Vital Signs Temp Pulse Resp BP Pulse Ox 97.5 F L 81 18 123/86 96 04/03/18 16:06 04/03/18 16:06 04/03/18 16:06 04/03/18 16:06 04/03/18 16:06 - General physical appearance well developed, well nourished, moderate distress, moderate pain - Eyes PERRL, normal ocular movement, icteric - ENT normal pinna, normal nares, normal mucosa, no hearing loss, no congestion, Other (Left facial swelling along the angle of the jaw on near the chin with spontaneous drainage). negative: decreased hearing, deviated nasal septum, nasal discharge, poor snf, dentures, mucosal exudate, dry mucosa - Neck no masses, trachea midline, no lymphadectomy. negative: deviated trachea, diffuse goiter, limited ROM - Respiratory normal expansion, normal respiratory effort, clear to percussion, clear to auscultation - Abdomen Abdomen: soft, non tender, bowel sounds, no tender, no surgical scars - Integumentary no rash, no growths, no abnormal pigmentation, other (Multiple tattoos) Exam Initial Vital Signs Temp Pulse Resp BP Pulse Ox 97.5 F L 81 18 123/86 96 04/03/18 16:06 04/03/18 16:06 04/03/18 16:06 04/03/18 16:06 04/03/18 16:06 Results - Labs 04/03/18 16:52 04/03/18 16:52 Abnormal lab results WBC 16.2 K/mcL (4.3-11.1) H 04/03/18 16:52 MPV 8.8 fL (9.4-12.4) L 04/03/18 16:52 Neutrophils # 12.7 K/mcL (1.6-8.9) H 04/03/18 16:52 Carbon Dioxide 31 mEq/L (23-29) H 04/03/18 16:52 Diabetes panel 04/03/18 Range/Units 16:52 Sodium 136 (136-145) mEq/L Potassium 4.1 (3.5-5.1) mEq/L Chloride 100 (98-107) mEq/L Carbon Dioxide 31 H (23-29) mEq/L BUN 10 (6-20) mg/dL Creatinine 0.84 (0.70-1.30) mg/dL Glucose 96 (70-105) mg/dL Calcium 9.4 (8.6-10.3) mg/dL Calcium panel 04/03/18 Range/Units 16:52 Calcium 9.4 (8.6-10.3) mg/dL Pituitary panel 04/03/18 Range/Units 16:52 Sodium 136 (136-145) mEq/L Potassium 4.1 (3.5-5.1) mEq/L Chloride 100 (98-107) mEq/L Carbon Dioxide 31 H (23-29) mEq/L BUN 10 (6-20) mg/dL Creatinine 0.84 (0.70-1.30) mg/dL Glucose 96 (70-105) mg/dL Calcium 9.4 (8.6-10.3) mg/dL Adrenal panel 04/03/18 Range/Units 16:52 Sodium 136 (136-145) mEq/L Potassium 4.1 (3.5-5.1) mEq/L Chloride 100 (98-107) mEq/L Carbon Dioxide 31 H (23-29) mEq/L BUN 10 (6-20) mg/dL Creatinine 0.84 (0.70-1.30) mg/dL Glucose 96 (70-105) mg/dL Calcium 9.4 (8.6-10.3) mg/dL All other labs normal. Consult Discharge Plan - Plan Referrals: NONE,PCP [Primary Care Provider] -
[2018-04-03] MEDS: Ringers Solution, Lactated 1,000 ML IVC SCH (21:14)
[2018-04-03] MEDS: Ampicillin/Sulbactam 3,000 MG in 0.9 % Sodium Chloride Mini Bag 100 ML IVPB SCH ×2 (21:15→23:44)
[2018-04-03] MEDS: Ketorolac 30 MG/ML VIAL IVP PRN (23:45)
[2018-04-04] MEDS: Ampicillin/Sulbactam 3,000 MG in 0.9 % Sodium Chloride Mini Bag 100 ML IVPB SCH ×3 (06:07→17:43)
[2018-04-04] MEDS: Ketorolac 30 MG/ML VIAL IVP PRN ×2 (06:12→12:21)
[2018-04-04 07:13] LABS: Basophils # 0.1 K/mcL (0.0-0.2); Basophils % 0.5 %; Eosinophils # 0.6 K/mcL (0.0-0.6); Eosinophils % 4.3 %; Hematocrit 38.8 % (37.5-50.1); Hemoglobin 12.7 g/dL (12.9-16.9); Immature Granulocytes % 0.2 % (0-4); Lymphocytes # 1.9 K/mcL (0.6-4.6); Lymphocytes % 14.5 %; Mean Corpuscular HGB Conc 32.7 g/dL (31.6-35.5); Mean Corpuscular Hemoglobin 29.3 pg (28.0-33.3); Mean Corpuscular Volume 89.4 fL (83.0-100.0); Mean Platelet Volume 8.9 fL (9.4-12.4); Monocytes # 0.7 K/mcL (0.0-1.3); Monocytes % 5.1 %; Neutrophils # 9.6 K/mcL (1.6-8.9); Platelet Count 225 K/mcL (140-400); Red Blood Count 4.34 M/mcL (4.19-5.50); Red Cell Distribution Width 12.9 % (11.5-14.5); Segmented Neutrophils % 75.4 %
[2018-04-04 07:35] LABS: BUN/Creatinine Ratio 14 (6-26); Blood Urea Nitrogen 12 mg/dL (6-20); Carbon Dioxide 25 mEq/L (23-29); Chloride 104 mEq/L (98-107); Glucose 118 mg/dL (70-105); Osmolality,Calculated 281 (280-300); Potassium 4.1 mEq/L (3.5-5.1); Sodium 135 mEq/L (136-145); eGFR For Non-African Americans > 60 (> 60)
[2018-04-04] MEDS: Ringers Solution, Lactated 1,000 ML IVC SCH (09:06)
--- NOTE | 2018-04-04 13:11 | ENT - Progress Note ---
Date of Encounter: 04/04/18 Time of Encounter: 13:09 - Assessment and Plan (1) Facial abscess Current Visit: Yes Status: Acute Packing advanced on today's rounds Continue vancomycin and Unasyn White blood count elevated at 12.8 She is afebrile Will await wound cultures I discussed with the patient that the area where there is significant induration does not have a palpable abscess and that we will continue to observe and if a fluid collection is noted on tomorrow was rounds, then we will plan for in IND that area. Continue dressing changes every 8 hours on the incision and drainage site. Subjective Narrative: Patient seen and examined at bedside. The patient does feels that he may have had a fever overnight. He states that the incision and drainage site is draining a purulent drainage. He states that the pain overall has decreased however he does not necessarily feel that the erythema and edema below the left lateral lip has decreased Objective Initial Vital Signs Temp Pulse Resp BP Pulse Ox 97.5 F L 81 18 123/86 96 04/03/18 16:06 04/03/18 16:06 04/03/18 16:06 04/03/18 16:06 04/03/18 16:06 - General physical appearance well developed, well nourished, no distress - Eyes normal ocular movement - ENT normal pinna, normal nares, normal mucosa, CN 2-12 grossly intact, Other (The incision and drainage site on the left border of the mandible is draining purulent drainage, the packing is in place and was advanced slightly. There is erythema edema and induration noted below the left lateral lip however at this time there is no palpable fluctuance.) - Neck trachea midline - Labs 04/04/18 06:50 04/04/18 06:50 Diabetes panel 04/03/18 04/04/18 Range/Units 16:52 06:50 Sodium 136 135 L (136-145) mEq/L Potassium 4.1 4.1 (3.5-5.1) mEq/L Chloride 100 104 (98-107) mEq/L Carbon Dioxide 31 H 25 (23-29) mEq/L BUN 10 12 (6-20) mg/dL Creatinine 0.84 0.84 (0.70-1.30) mg/dL Glucose 96 118 H (70-105) mg/dL Calcium 9.4 9.0 (8.6-10.3) mg/dL Calcium panel 04/03/18 04/04/18 Range/Units 16:52 06:50 Calcium 9.4 9.0 (8.6-10.3) mg/dL Pituitary panel 04/03/18 04/04/18 Range/Units 16:52 06:50 Sodium 136 135 L (136-145) mEq/L Potassium 4.1 4.1 (3.5-5.1) mEq/L Chloride 100 104 (98-107) mEq/L Carbon Dioxide 31 H 25 (23-29) mEq/L BUN 10 12 (6-20) mg/dL Creatinine 0.84 0.84 (0.70-1.30) mg/dL Glucose 96 118 H (70-105) mg/dL Calcium 9.4 9.0 (8.6-10.3) mg/dL Adrenal panel 04/03/18 04/04/18 Range/Units 16:52 06:50 Sodium 136 135 L (136-145) mEq/L Potassium 4.1 4.1 (3.5-5.1) mEq/L Chloride 100 104 (98-107) mEq/L Carbon Dioxide 31 H 25 (23-29) mEq/L BUN 10 12 (6-20) mg/dL Creatinine 0.84 0.84 (0.70-1.30) mg/dL Glucose 96 118 H (70-105) mg/dL Calcium 9.4 9.0 (8.6-10.3) mg/dL - VTE Reasons for not Prescribing Prophylaxis: Treatment not Indicated - Low risk for VTE Consult Discharge Plan - Plan Referrals: NONE,PCP [Primary Care Provider] -
--- NOTE | 2018-04-04 13:46 | Internal Med Progress Note ---
Hospitalist Progress Note - Encounter Date of Encounter: 04/04/18 Time of Encounter: 09:12 - Subjective Interval History: Patient seen and examined this morning in the chart. Pain slighly improved. Swelling decreased. No acute overnight events and afebrile. - Exam Vitals: Temp Pulse Resp BP Pulse Ox 98.8 F 99 16 95/55 99 04/04/18 11:35 04/04/18 11:35 04/04/18 11:35 04/04/18 11:35 04/04/18 11:35 Exam: Constitutional: Vitals as noted. Conversant. ENT : wound packing noted on Left mandibular border near mentum with purulent drainage with 3x4 cm induration. redness improved. No fluctuance noted. Left sided painful lymphadenopathy Respiratory : Clear to auscultation bilaterally. No accessory muscle use, rales, rhonchi or wheezes Cardiovascular : RRR, +S1, +S2. no murmur, gallop, rubs. No chest wall tenderness GI/Abdominal : Soft, Non-tender, Non-distended, normal bowel sounds, soft, no peritoneal signs. - Assessment and Plan (1) Facial abscess Current Visit: Yes Status: Acute (2) IVDU (intravenous drug user) Current Visit: Yes Status: Acute (3) Cellulitis Current Visit: Yes Status: Acute - Summary of Assessment and Plan Summary of Assessment and Plan: Facial abscess/cellulitis - Patient increasing swelling on the left side of his face which was previously diagnosed on CT to have developing abscesses - s/p I&D yesterday - c/w vancomycin and Unasyn. white count improving. f/u blood and wound culture - Packing advanced by ENT. ENT recommendation noted and appreciated. - Toradol for pain control. We will try to avoid narcotics given history of addictive behavior - Time Spent with Patient Total time spent is greater than 50% in coordination of care (as documented) at patient's floor/unit and/or counseling patient: Internal Medicine: Result - Labs CBC & Chem 7: 04/04/18 06:50 04/04/18 06:50 Labs: Short CBC 04/03/18 04/04/18 Range/Units 16:52 06:50 WBC 16.2 H 12.8 H (4.3-11.1) K/mcL Hgb 13.4 12.7 L (12.9-16.9) g/dL Hct 39.9 38.8 (37.5-50.1) % Plt Count 240 225 (140-400) K/mcL Neutrophils # 12.7 H 9.6 H (1.6-8.9) K/mcL BMP 04/03/18 04/04/18 16:52 06:50 Sodium 136 135 L Potassium 4.1 4.1 Chloride 100 104 Carbon Dioxide 31 H 25 BUN 10 12 Creatinine 0.84 0.84 Glucose 96 118 H Calcium 9.4 9.0 - VTE Reasons for not Prescribing Prophylaxis: Treatment not Indicated - Low risk for VTE Consult Discharge Plan - Plan Referrals: NONE,PCP [Primary Care Provider] - (3) Cellulitis Qualifiers: Site of cellulitis: face Qualified Code(s): L03.211 - Cellulitis of face
[2018-04-05] MEDS: Ampicillin/Sulbactam 3,000 MG in 0.9 % Sodium Chloride Mini Bag 100 ML IVPB SCH ×3 (00:20→11:38)
[2018-04-05] MEDS: Ketorolac 30 MG/ML VIAL IVP PRN ×2 (00:58→08:56)
--- NOTE | 2018-04-05 14:58 | Internal Med Progress Note ---
Addendum entered and electronically signed by Hung Dumas DO 04/06/18 10:12: The addendum placed below by myself was entered under wrong note and should be addended to the ENT progress note by Arleen Lombardo on 04/05/2018. Addendum entered and electronically signed by Hung Dumas DO 04/06/18 09:32: The patient was seen and examined independently of the nurse practitioner and I agree with the assessment and plan the following modification, we did not perform I&D at bedside, we will continue to observe as there was not a significant area of fluctuance noted inferior to the left oral commissure. We will continue to observe for 24 hours to continue to monitor response to antibiotics. If an area of fluctuance does develop in that area, we will plan for an incision and drainage. The previous I&D site does not have packing in any longer however the physical exam does not suggest reaccumulation of abscess. Original Note: Hospitalist Progress Note - Encounter Date of Encounter: 04/05/18 Time of Encounter: 12:03 - Subjective Interval History: Patient seen and examined this morning in the chart. Redness and Swelling decreased. No acute overnight events and afebrile. - Exam Vitals: Temp Pulse Resp BP Pulse Ox 98.2 F 71 18 123/77 97 04/05/18 11:48 04/05/18 11:48 04/05/18 11:48 04/05/18 11:48 04/05/18 11:48 Exam: Constitutional: Vitals as noted. Conversant. ENT : 3x3 cm induration fluctuance with redness. improved. Left sided painful lymphadenopathy Respiratory : Clear to auscultation bilaterally. No accessory muscle use, rales, rhonchi or wheezes Cardiovascular : RRR, +S1, +S2. no murmur, gallop, rubs. No chest wall tenderness GI/Abdominal : Soft, Non-tender, Non-distended, normal bowel sounds, soft, no peritoneal signs. - Assessment and Plan (1) Facial abscess Current Visit: Yes Status: Acute (2) IVDU (intravenous drug user) Current Visit: Yes Status: Acute (3) Cellulitis Current Visit: Yes Status: Acute - Summary of Assessment and Plan Summary of Assessment and Plan: Facial abscess/cellulitis - Patient increasing swelling on the left side of his face which was previously diagnosed on CT to have developing abscesses - s/p I&D - c/w vancomycin. Stop Unasyn as wound culture growing staph aureus. blood NGTD - ENT to perform I&D today agin - Toradol for pain control. - Time Spent with Patient Total time spent is greater than 50% in coordination of care (as documented) at patient's floor/unit and/or counseling patient: Internal Medicine: Result - Labs CBC & Chem 7: 04/04/18 06:50 04/04/18 06:50 - VTE Reasons for not Prescribing Prophylaxis: Treatment not Indicated - Low risk for VTE Consult Discharge Plan - Plan Referrals: NONE,PCP [Primary Care Provider] - (3) Cellulitis Qualifiers: Site of cellulitis: face Qualified Code(s): L03.211 - Cellulitis of face
--- NOTE | 2018-04-05 16:20 | ENT - Progress Note ---
Date of Encounter: 04/05/18 Time of Encounter: 11:45 - Assessment and Plan (1) Facial abscess Current Visit: Yes Status: Acute Patient seen and examined at bedside today. Patient reports overall pain is less at previous I&D site on the chin. No packing currently in place in previous I&D site will not replace packing at this time. He reports improvement in swelling and tenderness of the area of the lower left lateral lip. No significant amount of induration or erythema noted, minimal fluctuance noted 1 cm below oral commissure. Continue IV vancomycin, preliminary wound cultures resulted positive for Staphylococcus aureus, awaiting sensitivity. Patient is currently afebrile. Patient currently appears to be responding to well to IV antibiotics. Will reassess tomorrow to determine if possible I&D is needed. Subjective Patient reports: no new complaints, feels better, pain is less, tolerating liquids well, tolerating a regular diet (Patient reports pain is less in chin area, he continues to report purulent drainage from I&D site. ) Objective Initial Vital Signs Temp Pulse Resp BP Pulse Ox 97.5 F L 81 18 123/86 96 04/03/18 16:06 04/03/18 16:06 04/03/18 16:06 04/03/18 16:06 04/03/18 16:06 - General physical appearance well developed, well nourished, no distress - Eyes PERRL, normal ocular movement - ENT normal pinna, normal nares, normal mucosa, CN 2-12 grossly intact, Other (The incision and drainage site on the left border of the mandible is draining small amount of purulent drainage, no packing currently in place. No significant induration or erythema noted to the lower left lateral lip, minimal fluctuance noted. ) - Neck trachea midline, no lymphadectomy - Respiratory normal expansion, normal respiratory effort - Psychiatric oriented to time, oriented to person, oriented to place, speech is normal - Labs 04/04/18 06:50 04/04/18 06:50 - VTE Reasons for not Prescribing Prophylaxis: Treatment not Indicated - Low risk for VTE Consult Discharge Plan - Plan Referrals: NONE,PCP [Primary Care Provider] -
[2018-04-06] MEDS: Ketorolac 30 MG/ML VIAL IVP PRN ×2 (00:38→13:50)
[2018-04-06 11:17] VITALS: BP 129/78
--- NOTE | 2018-04-06 13:18 | Discharge Summary ---
- NOTES TO OUTPATIENT PROVIDER Notes to Outpatient Provider: Patient will received 5 more days of Keflex for abscess and cellulitis. Orders not resulted at time of discharge: Pending orders 04/03/18 17:08 Culture,Blood [BC] Stat 04/03/18 20:15 Culture,Anaerobic [RM] Routine Date of Encounter: 04/06/18 Time of Encounter: 13:15 - Discharge Diagnosis (1) Facial abscess Priority: Primary Status: Acute (2) IVDU (intravenous drug user) Priority: Secondary Status: Acute (3) Cellulitis Priority: Primary Status: Acute Qualifiers: Site of cellulitis: face Qualified Code(s): L03.211 - Cellulitis of face Hospital course: Mr. Castellon is a 33 year old male with past medical history of IV drug use, came in with complaint of left facial swelling. Patient was recently discharged on oral clindamycin 2 days ago and came with significant worsening of the swelling. Patient did not get any chest to take oral antibiotics or follow-up with oral maxillary surgeon. Patient had a CAT scan in ER showed multiple facial abscess. Patient was started on vancomycin and Unasyn empirically. Patient had ENT consult for I&D. Patient had I&D done by ENT after which he significantly improved. Another session of I&D was planned however patient improved significantly on IV antibiotics and no further fluctuance was noted. Wound culture from I&D grew MSSA. Patient will be discharged on 5 more day of Keflex twice a day and NSAIDs for pain. Patient to follow-up PCP in 1 weeks for resolution. Discharge discussed with: patient, nurse - Time Spent with Patient Total time spent providing and/or coordinating discharge services: Greater than 30 minutes (35) - Discharge Medications Prescriptions: Ibuprofen [Motrin] 400 mg PO Q8HR 4 Days #12 tablet cephALEXin [Keflex] 500 mg PO BID 5 Days #10 capsule Home Medications: Ibuprofen [Motrin] 400 mg PO Q8HR 4 Days #12 tablet 04/06/18 [Rx] cephALEXin [Keflex] 500 mg PO BID 5 Days #10 capsule 04/06/18 [Rx] Allergies/Adverse Reactions: Allergy/AdvReac Type Severity Reaction Status Date / Time Sulfa (Sulfonamide AdvReac See Verified 04/04/18 18:53 Antibiotics) Comments Date of admission: 04/05/18 13:30 Primary care physician: PCP NONE Consults: 04/03/18 17:54 Consult to ENT [CONS] Stat Consulting Provider: ENT Raina Reason for Consult: facial abscess with cellulitis Time Notified: 17:54 Call Completed: Yes Discharging clinician: Juliann Orozco - Constitutional Vitals: Temp Pulse Resp BP Pulse Ox 98.6 F 86 13 129/78 98 04/06/18 11:16 04/06/18 11:16 04/06/18 11:16 04/06/18 11:16 04/06/18 11:16 Exam: Constitutional: Vitals as noted. Conversant. ENT : swelling and redness improved. No fluctuance notice. Left sided painful lymphadenopathy Respiratory : Clear to auscultation bilaterally. No accessory muscle use, rales, rhonchi or wheezes Cardiovascular : RRR, +S1, +S2. no murmur, gallop, rubs. No chest wall tenderness GI/Abdominal : Soft, Non-tender, Non-distended, normal bowel sounds, soft, no peritoneal signs. - Patient Status Disposition: Home, Self-Care Condition: Fair - Discharge Instructions Follow Up With: NONE,PCP [Primary Care Provider] - - Diet and Activity Activity: increase activity as tolerated - VTE Reasons for not Prescribing Prophylaxis: Treatment not Indicated - Low risk for VTE
--- NOTE | 2018-04-06 13:21 | ENT - Progress Note ---
Date of Encounter: 04/06/18 Time of Encounter: 11:45 - Assessment and Plan (1) Facial abscess Current Visit: Yes Status: Acute Patient seen and examined at bedside today. Patient continues to report decrease pain and swelling of lower lateral left lip. Decreased drainage at previous I&D site. No erythema or significant amount of induration noted, no palpable fluctuance noted today upon physical examination. No further surgical intervention or I&D is recommended at this time. Final culture report positive for Staphylococcus aureus, may transition to PO for discharge. Patient currently appears to be responding well to antibiotic therapy. No further intervention is warranted from ENT at this time, signing off. Subjective Patient reports: no new complaints, feels better, pain is less, tolerating liqui ds well, tolerating a regular diet (Patient reports continued decreased swelling of lower left lateral lip. ) Objective Initial Vital Signs Temp Pulse Resp BP Pulse Ox 97.5 F L 81 18 123/86 96 04/03/18 16:06 04/03/18 16:06 04/03/18 16:06 04/03/18 16:06 04/03/18 16:06 - General physical appearance well developed, well nourished, no distress - Eyes PERRL, normal ocular movement - ENT normal pinna, normal nares, normal mucosa, CN 2-12 grossly intact, Other (The incision and drainage site on the left border of the mandible is draining very scant amount of purulent drainage, no packing currently in place. No erythema or significant induration noted to the lower left lateral lip, no palpable fluctuance noted. ) - Neck trachea midline, no lymphadectomy - Respiratory normal expansion, normal respiratory effort - Psychiatric oriented to time, oriented to person, oriented to place, speech is normal - Labs 04/04/18 06:50 04/04/18 06:50 - VTE Reasons for not Prescribing Prophylaxis: Treatment not Indicated - Low risk for VTE Consult Discharge Plan - Plan Referrals: NONE,PCP [Primary Care Provider] -
[2018-04-06] MEDS ORDERED: cephALEXin 500 MG CAPSULE PO ONE (14:57)
[2018-04-06] MEDS ORDERED: Aminoglycoside Consult 1 EACH MC ONE (17:11)
== END 2018-04-06 17:12 | disposition home or self-care (01) | DRG 383 ==
LOC: EMEROOARM 15:50 → 3BNU 15:50 → SUATTDRO 18:08 → 3BNU 18:52
PROVIDERS: ADMIT Hospitalist; ATTEND Internal Medicine